=== PATIENT | male | born 1975 | race Caucasian/White ===

== ENCOUNTER 2016-02-27 15:49 | Emergency (ER) | payer OTHER ==
[2016-02-27] MEDS ORDERED: ACETAMINOPHEN 325 MG TABLET PO ONE (16:05)
--- NOTE | 2016-02-27 16:05 | ER Document Report ---
ED Medical Screen (RME) - General Chief Complaint: Head Injury Stated Complaint: HEAD INJURY Time seen by provider: 16:01 Mode of Arrival: Wheelchair Information source: Patient Notes: 40-year-old male presents to ED for a head injury. He was underneath of a car lift and stood up hitting the back of his head on the car left. He said he was very dazed but did not pass out at that time. It was almost time for lunch so he sat down for a minute and then went to lunch and ate some soup chicken and rice. He went back to work bent over and then almost face planted into the ground. He states he did not completely black out but was very dizzy. He states he is very nauseated but has not vomited. He states he has some numbness and tingling in his hands and face and his vision is "weird". I have greeted and performed a rapid initial assessment of this patient. A comprehensive ED assessment and evaluation of the patient, analysis of test results and completion of medical decision making process will be conducted by an additional ED providers. Physical Exam - Vital signs Vitals: Temp Pulse Resp BP Pulse Ox 98.1 F 78 18 137/92 H 99 02/27/16 15:55 02/27/16 15:55 02/27/16 15:55 02/27/16 15:55 02/27/16 15:55 Course - Vital Signs Vital signs: Temp Pulse Resp BP Pulse Ox 98.1 F 78 18 137/92 H 99 02/27/16 15:55 02/27/16 15:55 02/27/16 15:55 02/27/16 15:55 02/27/16 15:55
[2016-02-27] MEDS ORDERED: ONDANSETRON 4 MG TAB.RAPDIS PO ONE (16:06)
[2016-02-27 17:55] LABS: ABSOLUTE BASOPHILS # (AUTO) 0.1 10^3/uL (0.0-0.2); ABSOLUTE EOSINOPHILS # (AUTO) 0.1 10^3/uL (0.0-0.6); ABSOLUTE LYMPHOCYTES (AUTO) 2.4 10^3/uL (0.5-4.7); ABSOLUTE MONOCYTES (AUTO) 1.1 10^3/uL (0.1-1.4); ABSOLUTE NEUT (AUTO) 7.4 10^3/uL (1.7-8.2); BASOPHILS % (AUTO) 0.9 % (0-2); EOSINOPHILS % (AUTO) 1.1 % (0-6); HEMATOCRIT 41.3 % (37.9-51.0); HEMOGLOBIN 13.8 g/dL (13.5-17.0); HGB HCT DIFFERENCE 0.1; LYMPHOCYTES % (AUTO) 21.4 % (13-45); MEAN CORPUSCULAR HEMOGLOBIN 30.4 pg (27.0-33.4); MEAN CORPUSCULAR HGB CONC 33.5 g/dL (32.0-36.0); MEAN CORPUSCULAR VOLUME 91 fl (80-97); RED BLOOD COUNT 4.55 10^6/uL (4.35-5.55); RED CELL DISTRIBUTION WIDTH 12.4 % (11.5-14.0); SEGMENTED NEUTROPHILS % (AUTO) 66.6 % (42-78); WHITE BLOOD COUNT 11.1 10^3/uL (4.0-10.5)
[2016-02-27 18:08] LABS: ALANINE AMINOTRANSFERASE 59 U/L (21-72); ALBUMIN 4.5 g/dL (3.5-5.0); ALKALINE PHOSPHATASE 71 U/L (38-126); ANION GAP 13 (5-19); ASPARTATE AMINO TRANSFERASE 33 U/L (17-59); BILIRUBIN,TOTAL 1.3 mg/dL (0.2-1.3); BLOOD UREA NITROGEN 16 mg/dL (7-20); CALCIUM 9.3 mg/dL (8.4-10.2); CARBON DIOXIDE 25 mmol/L (22-30); CHLORIDE 103 mmol/L (98-107); CREATINE KINASE 160 U/L (55-170); CREATININE RESULT 1.05 mg/dL (0.52-1.25); GLUCOSE 79 mg/dL (75-110); LIPASE 105.3 U/L (23-300); POTASSIUM 4.2 mmol/L (3.6-5.0); SODIUM 140.7 mmol/L (137-145); TOTAL PROTEIN 7.3 g/dL (6.3-8.2)
[2016-02-27 18:20] LABS: CREATINE KINASE MB 0.94 ng/mL (<4.55); TROPONIN I < 0.012 ng/mL
--- NOTE | 2016-02-27 18:51 | ER Document Report ---
ED General - General Chief Complaint: Head Injury Stated Complaint: HEAD INJURY Mode of Arrival: Wheelchair - HPI Patient complains to provider of: head injury Notes: Patient coming in after he is working on a car stated HIS HEAD ON THE CAR LIFT STATES HE BECAME A LITTLE DAZED AND CONFUSED SAW STARS DID NOT HAVE ANY LOSS OF CONSCIOUSNESS HOWEVER DID BEEN OVER LATER ON IN TODAY FELT DIZZY AND POSSIBLY PASSED OUT. PATIENT DENIES ANY OTHER SYMPTOMS EXCEPT FOR SOME LEFT ARM TINGLING. DENIES ANY PAST MEDICAL PROBLEMS DENIES FEVERS CHILLS NAUSEA VOMITING DIARRHEA - Related Data Allergies/Adverse Reactions: Penicillins Allergy (Verified 02/27/16 16:05) Past Medical History - General Information source: Patient - Social History Smoking Status: Former Smoker Chew tobacco use (# tins/day): No Family History: Reviewed & Not Pertinent Patient has suicidal ideation: No Patient has homicidal ideation: No - Past Medical History Cardiac Medical History: Reports: Hx Hypertension Renal/ Medical History: Denies: Hx Peritoneal Dialysis Surgical Hx: Negative Review of Systems - Review of Systems Constitutional: No symptoms reported EENT: No symptoms reported Cardiovascular: No symptoms reported Respiratory: No symptoms reported Gastrointestinal: No symptoms reported Genitourinary: No symptoms reported Male Genitourinary: No symptoms reported Musculoskeletal: Other - Head pain left arm tingling Skin: No symptoms reported Hematologic/Lymphatic: No symptoms reported Neurological/Psychological: No symptoms reported -: Yes All other systems reviewed and negative Physical Exam - Vital signs Vitals: Temp Pulse Resp BP Pulse Ox 98.1 F 78 18 137/92 H 99 02/27/16 15:55 02/27/16 15:55 02/27/16 15:55 02/27/16 15:55 02/27/16 15:55 Interpretation: Normal - General General appearance: Appears well, Alert - HEENT Head: Normocephalic, Atraumatic Eyes: Normal Pupils: PERRL - Respiratory Respiratory status: No respiratory distress Chest status: Nontender Breath sounds: Normal Chest palpation: Normal - Cardiovascular Rhythm: Regular Heart sounds: Normal auscultation Murmur: No - Abdominal Inspection: Normal Distension: No distension Bowel sounds: Normal Tenderness: Nontender Organomegaly: No organomegaly - Back Back: Normal, Nontender - Extremities General upper extremity: Normal inspection, Nontender, Normal color, Normal ROM , Normal temperature General lower extremity: Normal inspection, Nontender, Normal color, Normal ROM , Normal temperature, Normal weight bearing. No: Gregg's sign - Neurological Neuro grossly intact: Yes Cognition: Normal Orientation: AAOx4 Ian Coma Scale Eye Opening: Spontaneous [place] Coma Scale Verbal: Oriented Ian Coma Scale Motor: Obeys Commands Ian Coma Scale Total: 15 Speech: Normal Motor strength normal: LUE, RUE, LLE, RLE Sensory: Normal - Psychological Associated symptoms: Normal affect, Normal mood - Skin Skin Temperature: Warm Skin Moisture: Dry Skin Color: Normal Course - Re-evaluation Re-evalutation: 02/27/16 22:47 CAT scan exam lab for studies showed no critical etiology. Patient will be discharged home - Vital Signs Vital signs: Temp Pulse Resp BP Pulse Ox 98 F 73 16 132/82 H 99 02/27/16 18:52 02/27/16 18:52 02/27/16 18:52 02/27/16 18:52 02/27/16 18:52 - Laboratory Result Diagrams: 02/27/16 17:41 02/27/16 17:41 Laboratory results interpreted by me: 02/27/16 17:41 WBC 11.1 H Discharge - Discharge Clinical Impression: Closed head injury Qualifiers: Encounter type: initial encounter Qualified Code(s): S09.90XA - Unspecified injury of head, initial encounter Condition: Good Disposition: HOME, SELF-CARE Instructions: Head Injury Precautions ([facility]), Concussion ([facility]), Post-Concussion Syndrome ([facility]) Additional Instructions: Please read your discharge instructions carefully. Follow-up with your primary care physician. Return to the ER symptoms worsen. Take Tylenol Motrin for your pain. Prescriptions: Ibuprofen [Motrin 600 Mg Tablet] 600 mg PO TID #30 tablet Forms: Return to Work
[2016-02-27 18:53] VITALS: BP 132/82
--- NOTE | 2016-02-27 19:02 | EKG REPORT ---
SEVERITY:- ABNORMAL ECG - SINUS RHYTHM NONSPECIFIC INTRAVENTRICULAR CONDUCTION DELAY : Confirmed by: Ramakrishna Malcolm MD 27-Feb-2016 19:01:30
== END 2016-02-27 18:53 | disposition home or self-care (01) ==
LOC: EDBD 15:49 → ER 15:49
DX: S09.90XA Unspecified injury of head, initial encounter (principal); W22.09XA Striking against other stationary object, initial encounter; I10 Essential (primary) hypertension; Z88.0 Allergy status to penicillin
CPT/HCPCS: 93005; 99284; 36415; 82553; 82550; 83690; 85025; 80053; 84484; 71020; 70450; 93010; S0119

== ENCOUNTER 2019-03-20 13:10 | Emergency (ER) | payer OTHER ==
--- NOTE | 2019-03-20 14:10 | ER Document Report ---
ED Medical Screen (RME) - General Chief Complaint: Chest Pain Stated Complaint: CHEST PAIN Time Seen by Provider: 03/20/19 14:03 Mode of Arrival: Ambulatory Information source: Patient Notes: 43-year-old male patient presented to emergency department chief complaint of chest pain. Patient reports chest pain started while at work a few hours ago. He reports it feels like a very heaviness in the middle of his chest. He states it radiates up to his left shoulder and jaw. He reports associated shortness of breath but denies any nausea. Patient has history of hypertension but denies any other known cardiac disease. Patient does report history of anxiety. Heart sounds S1-S2, tachycardic in triage. Lung sounds clear and equal bilaterally. No reproduction of pain with palpation on the chest wall. I have greeted and performed a rapid initial assessment of this patient. A comprehensive ED assessment and evaluation of the patient, analysis of test results and completion of the medical decision making process will be conducted by additional ED providers. I have specifically instructed the patient or family members with the patient to immediately return to any nursing staff shou ld anything change in the patient's condition or with their chief complaint. COUNTRY TRAVELED TO/FROM: [place] - Related Data Allergies/Adverse Reactions: Penicillins Allergy (Verified 02/27/16 16:05) Home Medications: lisinopril Past Medical History - Social History Frequency of alcohol use: None Drug Abuse: None - Past Medical History Cardiac Medical History: Reports: Hx Hypertension Renal/ Medical History: Denies: Hx Peritoneal Dialysis Physical Exam - Vital signs Vitals: Temp Pulse Resp BP Pulse Ox 98.4 F 117 H 16 134/83 H 95 03/20/19 13:03/20/19 13:21 03/20/19 13:03/20/19 13:03/20/19 13:21 Course - Vital Signs Vital signs: Temp Pulse Resp BP Pulse Ox 98.4 F 117 H 16 134/83 H 95 03/20/19 13:21 03/20/19 13:21 03/20/19 13:21 03/20/19 13:21 03/20/19 13:21
[2019-03-20 15:19] LABS: ABSOLUTE BASOPHILS # (AUTO) 0.1 10^3/uL (0.0-0.2); ABSOLUTE LYMPHOCYTES (AUTO) 2.4 10^3/uL (0.5-4.7); ABSOLUTE MONOCYTES (AUTO) 1.2 10^3/uL (0.1-1.4); ABSOLUTE NEUT (AUTO) 8.7 10^3/uL (1.7-8.2); BASOPHILS % (AUTO) 0.8 % (0-2); EOSINOPHILS % (AUTO) 0.3 % (0-6); HEMATOCRIT 45.3 % (37.9-51.0); LYMPHOCYTES % (AUTO) 19.6 % (13-45); MEAN CORPUSCULAR HEMOGLOBIN 31.2 pg (27.0-33.4); MEAN CORPUSCULAR HGB CONC 35.3 g/dL (32.0-36.0); MEAN CORPUSCULAR VOLUME 88 fl (80-97); MONOCYTES % (AUTO) 9.6 % (3-13); PLATELET COUNT 238 10^3/uL (150-450); RED BLOOD COUNT 5.13 10^6/uL (4.35-5.55); SEGMENTED NEUTROPHILS % (AUTO) 69.7 % (42-78); TOTAL CELLS COUNTED % (AUTO) 100 %; WHITE BLOOD COUNT 12.5 10^3/uL (4.0-10.5)
--- NOTE | 2019-03-20 15:19 | RADIOLOGY REPORT (SQ) ---
EXAM DESCRIPTION: CHEST SINGLE VIEW COMPLETED DATE/TIME: 03/20/2019 2:58 pm REASON FOR STUDY: chest pain COMPARISON: PA and lateral views of the chest from 02/27/2016 EXAM PARAMETERS: NUMBER OF VIEWS: One view. TECHNIQUE: An AP view of the chest was obtained. RADIATION DOSE: NA LIMITATIONS: None. FINDINGS: LUNGS AND PLEURA: Asymmetric parenchymal opacity in the inferior left hemithorax. There i s no pleural effusion or pneumothorax. MEDIASTINUM AND HILAR STRUCTURES: No mediastinal or hilar contour abnormality. HEART AND VASCULAR STRUCTURES: The cardiac silhouette and pulmonary vasculature are within normal alaniz its. BONES: No acute findings. HARDWARE: None in the chest. OTHER: No other finding. IMPRESSION: Asymmetric opacity in the inferior left hemithorax. Correlate with clinical findings to exclude an acute pneumonia. TECHNICAL DOCUMENTATION: JOB ID: [id number] 2010 [employer]- All Rights Reserved Reading location - IP/workstation name: [email or web address]
[2019-03-20 15:31] LABS: ALBUMIN 4.9 g/dL (3.5-5.0); ALKALINE PHOSPHATASE 89 U/L (38-126); ANION GAP 15 (5-19); ASPARTATE AMINO TRANSFERASE 39 U/L (17-59); BILIRUBIN,DIRECT 0.3 mg/dL (0.0-0.4); BILIRUBIN,TOTAL 0.8 mg/dL (0.2-1.3); BLOOD UREA NITROGEN 17 mg/dL (7-20); CARBON DIOXIDE 25 mmol/L (22-30); CHLORIDE 99 mmol/L (98-107); GLUCOSE 126 mg/dL (75-110); POTASSIUM 4.4 mmol/L (3.6-5.0); TOTAL PROTEIN 8.8 g/dL (6.3-8.2)
[2019-03-20] MEDS ORDERED: ASPIRIN 325 MG TABLET PO ONE (15:54)
[2019-03-20] MEDS ORDERED: MORPHINE SULFATE 10 MG/ML INJ IV ONE (15:55)
--- NOTE | 2019-03-20 18:24 | ER Document Report ---
ED Cardiac - General Chief Complaint: Chest Pain Stated Complaint: CHEST PAIN Time Seen by Provider: 03/20/19 14:03 Mode of Arrival: Ambulatory Information source: Patient COUNTRY TRAVELED TO/FROM: [facility] Notes: Patient presents with chest pain that started this morning. He states it is been constant but waxing and waning in intensity. It is a pressure sensation in the center of his chest. No significant radiation. Nothing makes it better or worse. He states that it possibly could be anxiety because he does have problems with anxiety. However he states because it persisted he decided to have it examined. No history of having any type of coronary artery disease. No previous history of any type of stress testing or cardiac evaluation. He has had no significant shortness of breath. No recent cough cold or congestion. This pain has been mild to moderate. - Related Data Allergies/Adverse Reactions: Penicillins Allergy (Verified 02/27/16 16:05) Home Medications: lisinopril Past Medical History - General Information source: Patient - Social History Smoking Status: Former Smoker Frequency of alcohol use: None Drug Abuse: None Family History: Reviewed & Not Pertinent Patient has suicidal ideation: No Patient has homicidal ideation: No - Past Medical History Cardiac Medical History: Reports: Hx Hypertension Renal/ Medical History: Denies: Hx Peritoneal Dialysis Review of Systems - Review of Systems Constitutional: denies: Chills, Fever Cardiovascular: Chest pain. denies: Palpitations Respiratory: denies: Cough, Wheezing -: Yes All other systems reviewed and negative Physical Exam - Vital signs Vitals: Temp Pulse Resp BP Pulse Ox 98.4 F 117 H 16 134/83 H 95 03/20/19 13:21 03/20/19 13:21 03/20/19 13:21 03/20/19 13:21 03/20/19 13:21 Interpretation: Normal - General General appearance: Appears well, Alert - HEENT Head: Normocephalic, Atraumatic Eyes: Normal Pupils: PERRL - Respiratory Respiratory status: No respiratory distress Chest status: Nontender Breath sounds: Normal Chest palpation: Normal - Cardiovascular Rhythm: Regular Heart sounds: Normal auscultation Murmur: No - Abdominal Inspection: Normal Distension: No distension Bowel sounds: Normal Tenderness: Nontender Organomegaly: No organomegaly - Back Back: Normal, Nontender - Extremities General upper extremity: Normal inspection, Nontender, Normal color, Normal ROM, Normal temperature General lower extremity: Normal inspection, Nontender, Normal color, Normal ROM, Normal temperature, Normal weight bearing. No: Gregg's sign - Neurological Neuro grossly intact: Yes Cognition: Normal Orientation: AAOx4 Ian Coma Scale Eye Opening: Spontaneous Ian Coma Scale Verbal: Oriented Ian Coma Scale Motor: Obeys Commands Ian Coma Scale Total: 15 Speech: Normal Motor strength normal: LUE, RUE, LLE, RLE Sensory: Normal - Psychological Associated symptoms: Normal affect, Normal mood - Skin Skin Temperature: Warm Skin Moisture: Dry Skin Color: Normal Course - Re-evaluation Re-evalutation: 03/20/19 18:21 Patient presents with chest pain. 2 sets of enzymes are negative. EKG and v ital signs are unremarkable. Patient has a heart score of 1. Seems most prudent to have patient pursue outpatient work-up. - Vital Signs Vital signs: Temp Pulse Resp BP Pulse Ox 98.4 F 117 H 16 134/83 H 95 03/20/19 13:21 03/20/19 13:21 03/20/19 13:21 03/20/19 13:21 03/20/19 13:21 - Laboratory Result Diagrams: 03/20/19 14:53 03/20/19 14:53 Laboratory results interpreted by me: 03/20/19 03/20/19 14:53 14:53 WBC 12.5 H Absolute Neuts (auto) 8.7 H Glucose 126 H Total Protein 8.8 H - Diagnostic Test Radiology reviewed: Image reviewed, Reports reviewed - EKG Interpretation by Ok EKG shows normal: Sinus rhythm Rate: Tachycardia - 103 Rhythm: NSR [place]/QRS: No: Right axis deviation, Left axis deviation Discharge - Discharge Clinical Impression: Chest pain Qualifiers: Chest pain type: unspecified Qualified Code(s): R07.9 - Chest pain, unspecified Condition: Stable Disposition: HOME, SELF-CARE Instructions: Chest Pain of Unclear Cause ([facility]) Additional Instructions: Please follow-up with your primary care physician this week. Please discuss an outpatient cardiac stress test with your primary physician. Forms: Return to Work Referrals: [facility] [Provider Group] - Follow up in 3-5 days
[2019-03-20 18:32] VITALS: BP 124/84
--- NOTE | 2019-03-20 20:30 | EKG REPORT ---
SEVERITY:- BORDERLINE ECG - SINUS TACHYCARDIA NONSPECIFIC IVCD : Confirmed by: Ramakrishna Malcolm MD 20-Mar-2019 20:29:55
== END 2019-03-20 18:39 | disposition home or self-care (01) ==
LOC: ER 13:10
DX: R07.9 Chest pain, unspecified (principal); I10 Essential (primary) hypertension; Z88.0 Allergy status to penicillin
CPT/HCPCS: 93005; 36415; 85025; 80053; 84484; 71045; 93010; J2270